=== PATIENT | male | born 1985 | race Two or more races ===

== ENCOUNTER 2021-01-16 13:34 | Emergency (ER) | payer OTHER ==
[2021-01-16 14:09] LABS: BASOPHIL 0.7 % (0-2); EOSINOPHIL 0.8 % (0-5); HCT 47.9 % (42.0-52.0); HGB 16.2 g/dl (13.2-18.0); LYMPHOCYTE 22.2 % (15-48); MCH 26.7 pg (25.0-31.0); MCHC 33.8 g/dL (32.0-36.0); MONOCYTE 7.6 % (0-12); MPV 10.2 fL (6.0-9.5); NEUTROPHIL 67.1 % (41-80); NRBC 0; PLT 288 K/uL (150-400); RBC 6.06 M/uL (4.70-6.00); RDW 15.3 % (11.5-14.0); WBC 10.8 K/uL (4.0-10.5)
[2021-01-16 14:12] LABS: BILIRUBIN NEGATIVE (NEGATIVE); BLOOD NEGATIVE Ery/uL (NEGATIVE); CLARITY CLEAR (CLEAR); COLOR YELLOW (YELLOW); GLUCOSE (U) NORMAL (NORMAL); LEUKOCYTES NEGATIVE Leu/uL (NEGATIVE); NITRITE NEGATIVE (NEGATIVE); PROTEIN NEGATIVE (NEGATIVE); SPECIFIC GRAVITY <=1.005 (1.001-1.030); UROBILINOGEN 0.2 mg/dL (0.2-1.0)
[2021-01-16 14:17] LABS: ECSTASY (MDMA) NEGATIVE (NEGATIVE); MARIJUANA (THC) NEGATIVE (NEGATIVE); METHADONE NEGATIVE (NEGATIVE); OPIATES NEGATIVE (NEGATIVE)
[2021-01-16 14:18] LABS: AMPHETAMINES NEGATIVE (NEGATIVE); BARBITURATES NEGATIVE (NEGATIVE); OXYCODONE NEGATIVE (NEGATIVE)
[2021-01-16 15:39] LABS: ALBUMIN 4.2 g/dL (3.4-5.0); ALKALINE PHOSHATASE 160 U/L (46-116); ALT 34 U/L (16-63); AST 14 U/L (15-37); BILIRUBIN - TOTAL 0.3 mg/dL (0.2-1.0); BUN 9 mg/dL (7-18); BUN/CREAT RATIO (CALC) 8.2 RATIO; CHLORIDE 101 mmol/L (98-107); CO2 (BICARBONATE) 23 mmol/L (21-32); GLOBULIN (CALCULATION) 4.4 g/dL; GLUCOSE 132 mg/dL (74-106); POTASSIUM 3.9 mmol/L (3.5-5.1); TOTAL PROTEIN 8.6 g/dL (6.4-8.2)
[2021-01-16 15:40] LABS: ACETAMINOPHEN (TYLENOL) < 2.0 ug/mL (10.0-30.0)
== END 2021-01-16 21:12 ==
LOC: FER 13:34
PROVIDERS: Emergency Medicine
DX: R45.851 Suicidal ideations (principal); F31.9 Bipolar disorder, unspecified; F20.9 Schizophrenia, unspecified; Z79.899 Other long term (current) drug therapy; Z88.5 Allergy status to narcotic agent; Z20.822 Contact with and (suspected) exposure to COVID-19
CPT/HCPCS: 36415; 80053; 80305; 81003; 85025; 99285; G0480; U0002